=== PATIENT | female | born 1950 | race Caucasian/White ===

== ENCOUNTER 2016-09-09 11:10 | Emergency (ER) | payer OTHER, MEDICARE ==
[~2016-09-09 11:10] MED LIST: ASPIRIN EC81 MG PO; CARDIZEM CD180 MG PO; CORDARONE200 MG PO; COUMADIN3 MG PO; COZAAR25 MG PO; FLOVENT IH; HYDROCODON-ACE1 EAC4 PO; LIPITOR20 MG PO; PROAIR HFA8.5 GM IH; SYNTHROID150 MCG PO; VITAMIN D350000 UNIT PO
== END 2016-09-09 14:50 | disposition home or self-care (01) ==
LOC: ER 11:10
DX: M54.5 Low back pain (principal); I48.91 Unspecified atrial fibrillation; I10 Essential (primary) hypertension; Z98.51 Tubal ligation status; Z79.82 Long term (current) use of aspirin; Z79.01 Long term (current) use of anticoagulants; Z79.899 Other long term (current) drug therapy; Z88.1 Allergy status to other antibiotic agents; Z91.013 Allergy to seafood; V49.40XA Driver injured in collision with unspecified motor vehicles in traffic accident, initial encounter
CPT/HCPCS: 96372; J2270